=== PATIENT | female | born 1995 | race African-American/Black ===

== ENCOUNTER 2020-02-21 19:45 | Emergency (ER) | payer OTHER ==
[~2020-02-21] VITALS: Ht 165.1 cm; Wt 45.4 kg
[2020-02-21 21:47] VITALS: BP 119/52
== END 2020-02-21 21:40 | disposition home or self-care (01) ==
LOC: ER 19:45
DX: S01.511A Laceration without foreign body of lip, initial encounter (principal); W51.XXXA Accidental striking against or bumped into by another person, initial encounter; Y93.89 Activity, other specified; Y92.89 Other specified places as the place of occurrence of the external cause; Y99.8 Other external cause status